=== PATIENT | female | born 1940 | race Caucasian/White ===

== ENCOUNTER 2024-05-01 19:47 | Emergency (ER) | payer OTHER ==
[2024-05-01] MEDS ORDERED: HYDROcodone/Acetaminophen 10/325 mg Tablet ONE (22:15)
== END 2024-05-02 02:01 | disposition home or self-care (01) ==
LOC: CSHERS 19:47
DX: M17.11 Unilateral primary osteoarthritis, right knee (principal); Z55.6 Problems related to health literacy; Z87.891 Personal history of nicotine dependence

== ENCOUNTER 2024-05-14 14:48 | Outpatient (CLI) | payer OTHER | END 2024-05-14 14:49 | disposition home or self-care (01) | LOC: CSHRAD 14:48 | PROVIDERS: ATTEND Nurse Practitioner Family | DX: R06.02 Shortness of breath (principal) | CPT/HCPCS: 71046 ==